=== PATIENT | female | born 1995 | race African-American/Black ===

== ENCOUNTER 2016-09-01 20:43 | Emergency (ER) | payer OTHER, SELFPAY ==
[2016-09-01] MEDS ORDERED: Lidocaine 1% w/Epinephrine 1:100K 20 ML VIAL ONE (22:11)
[2016-09-01] MEDS ORDERED: cefTRIAXone\\ROCEPHIN 1 GM VIAL ONE (22:17)
[2016-09-01] MEDS ORDERED: Lidocaine 1% 20 ML MDV ONE (22:17)
[2016-09-01 22:21] LABS: #Basophils 0.1 thou/uL (0.0-0.2); #Eosinphils 0.1 thou/uL (0.0-0.7); #Lymphocytes 3.1 thou/uL (1.20-3.40); #Monocytes 0.4 thou/uL (0.11-0.59); #Neutrophils 7.3 thou/uL (1.40-6.50); %Eosinophils 1.2 % (0.0-10.0); %Lymphocytes 28.4 % (21.0-51.0); %Monocytes 3.6 % (0.0-10.0); Hematocrit 40.4 % (36.0-47.0); Red Blood Cell (RBC) Count 5.63 mill/uL (4.20-5.40)
[2016-09-01] MEDS ORDERED: Ibuprofen 200 MG TAB ONE (22:26)
[2016-09-01] MEDS ORDERED: HYDROcodone/Acetaminophen 10/325 mg Tablet ONE (22:26)
[2016-09-01 22:28] LABS: Anion Gap 20 mmol/L (10-20); BUN (Urea Nitrogen) 10 mg/dL (7.0-18.7); Calc. Creatinine Clearance 0 mL/min (70-130); Calcium 10.1 mg/dL (7.8-10.44); Carbon Dioxide 21 mmol/L (22-29); Chloride 94 mmol/L (98-107); Estimated GFR-MDRD 67
[2016-09-01] MEDS ORDERED: Insulin Regular 300 UNITS/3 ML VIAL ONE (22:43)
[2016-09-01] MEDS ORDERED: Sulfameth/Trimethoprim DS 800-160mg TAB ONE (22:44)
[2016-09-01 23:06] LABS: Bilirubin Negative (Negative); Blood, Urine Trace (Negative); Glucose, Urine (Dipstick) 500 mg/dL (Negative); Ketone, Urine Negative (Negative); Nitrite Negative (Negative); Protein, Urine (Dipstick) Negative (Neg-Trace); Urobilinogen 0.2 mg/dL (0.2-1.0)
[2016-09-01 23:08] LABS: Bacteria/HPF None Seen HPF (None Seen); WBC/HPF None Seen HPF (0-3)
[2016-09-02] MEDS ORDERED: Sodium Chloride 0.9% 1,000 ML ONE (00:28)
[2016-09-02] MEDS ORDERED: Sodium Chloride 0.9% 3,000 ML ONE (01:12)
[2016-09-02] MEDS ORDERED: HumaLOG 300 UNITS/3 ML VIAL SC SCH (02:15)
[2016-09-02] MEDS ORDERED: Levemir Flexpen 100 UNITS/ML PEN SC SCH (02:15)
--- NOTE | 2016-09-02 03:49 | ERRECORD ---
[facility] EMERGENCY RECORD HPI ABSCESS (WedSep 02, 2016 01:16 AGRE) CHIEF COMPLAINT: Patient presents for evaluation of swelling, Patient presents for evaluation of pain. HISTORIAN: History provided by patient, HAS SWELLING AND PAIN ON HER ABDOMINAL WALL THAT STARTED TODAY. NO FEVER OR CHILLS. NO NAUSEA OR VOMITING OR OTHER SYMPTOMS. IT HURTS TO TOUCH THE AREA. LOCATION: Symptoms are localized, most severe to LOWER ADOMINAL WALL. QUALITY: Pain is dull in nature, described as aching, described as throbbing. SEVERITY: Maximum severity of symptoms severe, Currently symptoms are severe. TIME COURSE: Gradual onset of symptoms, There has been no change in the patient's symptoms over time. ASSOCIATED WITH: No associated chills, No associated drainage, No associated fever, No associated nausea, No associated proximal streaking, No associated warmth, Denies any other complaints. COMPLICATING FACTORS: Complicating factors for wound healing include:, patient with history of diabetes. EXACERBATED BY: Patient's condition exacerbated by TOUCHING, MOVEMENT. RELIEVED BY: Patient's condition relieved by nothing. TETANUS: Tetanus status up to date. ROS (WedSep 02, 2016 01:17 AGRE) CONSTITUTIONAL: Historian denies chills, denies fever, denies lethargy, denies malaise. EYES: Historian denies eye pain, denies eye redness. ENT: Historian denies rhinorrhea, denies sinus pain, denies sore throat. CARDIOVASCULAR: Historian denies chest pain, denies dyspnea on exertion. RESPIRATORY: Historian denies cough, denies shortness of breath. GI: Historian denies abdominal pain, denies nausea, denies vomiting. MUSCULOSKELETAL: Historian denies back pain, denies neck pain. SKIN: Historian reports cellulitis, denies skin changes, denies skin lesions. NEUROLOGIC: Historian denies headache, denies mental status changes. PSYCHIATRIC: Negative psychiatric review of systems, Historian denies anxiety. PAST MEDICAL HISTORY (21:50 MSMI) MEDICAL HISTORY: Flu vaccine up to date, Tetanus immunization up to date, Pneumococcal vaccine not up to date, Past medical history includes history of diabetes, Type II, Past medical history includes gastrointestinal disease, gastroesophageal reflux disease. FEMALE SURGICAL HISTORY: Surgical history of cholecystectomy, Surgical history of section. verified with &a-1R&a+25V*p+0X*d5039L*c202B*c15G*c2P*p-0X&a-25V&a+1R Name: Joyce Villanueva : 1995 F20 MedRec: [id number] AcctNum: [id number] Prepared: WedSep 02, 2016 03:45 by Interface Page 1 of 5 pMD [facility] EMERGENCY RECORD patient on 09/01/16. PSYCHIATRIC HISTORY: No previous psychiatric history. SOCIAL HISTORY: Patient drinks socially, every week, Patient denies drug use, Patient has no smoking history, Lives at home, with family. KNOWN ALLERGIES No Allergy Information Available (Unconfirmed) No Known Allergies CURRENT MEDICATIONS metFORMIN: TABLET : Strength - 1,000 mg : ORAL Patient Dose: 1 tab(s) Oral ONCE. (21:51 MSMI) Lantus: VIAL (ML) : Strength - 100 unit/mL : SUBCUTANEOUS Patient Dose: 30 units Subcutaneous once a day (at bedtime). (21:52 MSMI) NovoLOG Mix 70-30: VIAL (ML) : Strength - 100 unit/mL (70-30) : SUBCUTANEOUS Patient Dose: 30 units Subcutaneous 3 times a day. (WedSep 02, 2016 01:09 MSMI) VITAL SIGNS VITAL SIGNS: BP: 136/72, Pulse: 108, Resp: 16, Temp: 97.7 (Oral), Pain: 8, O2 sat: 978 on Room Air, Time: 09/01/2016 21:45. (21:45 MSMI) BP: 120/74, Pulse: 95, Resp: 16, Temp: 98.0 (Oral), Pain: 6, O2 sat: 98 on Room Air, Time: 09/01/2016 22:35. (22:35 MSMI) BP: 125/81, Pulse: 95, Resp: 16, Temp: 98.1 (Oral), Pain: 4, O2 sat: 100 on Room Air, Time: 09/01/2016 23:26. (23:26 MSMI) BP: 127/72, Pulse: 93, Resp: 16, Temp: 98.6 (Oral), Pain: 0, O2 sat: 100 on Room Air, Time: 09/02/2016 00:51. (WedSep 02, 2016 00:51 MSMI) BP: 124/73, Pulse: 90, Resp: 14, Temp: 98.4 (Oral), Pain: 0, O2 sat: 99 on Room Air, Time: 09/02/2016 02:53. (WedSep 02, 2016 02:53 MSMI) PHYSICAL EXAM (WedSep 02, 2016 01:18 AGRE) CONSTITUTIONAL: Vital signs reviewed, Patient afebrile, Patient appears non toxic, Patient appears pain free, Patient alert and oriented to person, place and time, NURSES NOTES REVIEWED. HEAD: Head exam included findings of head atraumatic, normocephalic. EYES: Eye exam included findings of eyelids normal to inspection, Extraocular muscles intact, Conjunctiva normal, Sclera normal. ENT: Ear exam normal, Nose exam normal, Mouth exam normal. NECK: Neck exam included findings of normal range of motion, no meningeal signs. RESPIRATORY CHEST: Respiratory exam included findings of no respiratory distress, Breath sounds clear, Chest exam included findings of chest movement symmetrical. CARDIOVASCULAR: Cardiovascular assessment normal, Cardiovascular &a-1R&a+25V*p+0X*t8525C*c202B*c15G*c2P*p-0X&a-25V&a+1R Name: Joyce Villanueva : 1995 F20 MedRec: [id number] AcctNum: [id number] Prepared: WedSep 02, 2016 03:45 by Interface Page 2 of 5 pMD [facility] EMERGENCY RECORD exam included findings of heart rate regular rate and rhythm, Heart sounds normal. ABDOMEN FEMALE: Abdominal exam included findings of abdomen nontender, Bowel sounds normal, Liver normal, Spleen normal, no distension, no mass, no pulsatile masses, no peritoneal signs, no rigidity, no guarding, no rebound, LOCALIZED AREA OF CELLULITIS OF 5 X 7 CM WITH ERYTHEMA AND MINIMAL INDURATION OVER LOWER ABDOMINAL WALL WITH A POINTING ABSCESS. BACK: Back exam included findings of normal inspection, range of motion normal. UPPER EXTREMITY: Upper extremity exam included findings of inspection normal, Range of motion normal. LOWER EXTREMITY: Lower extremity exam included findings of inspection normal, Range of motion normal. NEURO: Neuro exam findings include patient oriented to person, place and time, Speech normal, Gait normal, Memory normal, Cranial nerves intact, no focal motor deficits. SKIN: Skin exam included findings of skin warm, dry, and normal in color. PSYCHIATRIC: Psychiatric exam normal, Normal affect. MEDICATION ADMINISTRATION SUMMARY Drug Name: *NovoLOG Mix 70-30, Dose Ordered: 20 units, Route: Subcutaneous, Status: Given, Time: 03:21 09/02/2016, Drug Name: *Lantus, Dose Ordered: 20 units, Route: Subcutaneous, Status: Given, Time: 03:21 09/02/2016, Drug Name: *NovoLIN R, Dose Ordered: 10 units, Route: IV Push, Status: Given, Time: 02:12 09/02/2016, Drug Name: metFORMIN, Dose Ordered: 1000 mg, Route: Oral, Status: Given, Time: 01:15 09/02/2016, Drug Name: *Normal Saline, Dose Ordered: 1 L, Route: IV Fluid Infusion, Status: Given, Time: 01:07 09/02/2016, Drug Name: *NovoLIN R, Dose Ordered: 10 units, Route: IV Push, Status: Given, Time: 01:07 09/02/2016, Drug Name: *Normal Saline, Dose Ordered: 1 L, Route: IV Fluid Infusion, Status: Given, Time: 00:46 09/02/2016, Drug Name: *NovoLIN R, Dose Ordered: 10 units, Route: IV Push, Status: Given, Time: 23:55 09/01/2016, Drug Name: sodium chloride 0.9 % intravenous, Dose Ordered: 2 L, Route: IV Fluid Infusion, Status: Given, Time: 22:58 09/01/2016, Drug Name: NovoLIN R, Dose Ordered: 10 units, Route: IV Push, Status: Given, Time: 22:57 09/01/2016, Drug Name: Bactrim DS, Dose Ordered: 1 tab(s), Route: Oral, Status: Given, Time: 22:55 09/01/2016, Drug Name: HYDROcodone-acetaminophen, Dose Ordered: 10/325 tab(s), Route: Oral, Status: Given, Time: 22:31 09/01/2016, Drug Name: cefTRIAXone injection, Dose Ordered: 1 g, Route: Intramuscular, Status: Given, Time: 22:30 09/01/2016, Drug Name: ibuprofen, Dose Ordered: 600 mg, Route: Oral, Status: &a-1R&a+25V*p+0X*n5783H*c202B*c15G*c2P*p-0X&a-25V&a+1R Name: Joyce Villanueva : 1995 F20 MedRec: [id number] AcctNum: [id number] Prepared: WedSep 02, 2016 03:45 by Interface Page 3 of 5 pMD [facility] EMERGENCY RECORD Given, Time: 22:30 09/01/2016, *Additional information available in notes, Detailed record available in Medication Service section. DOCTOR NOTES (WedSep 02, 2016 01:01 AGRE) TEXT: VS STABLE AND SHE REMAINS ALERT, ORIENTED, AFEBRILE AND PAIN FREE. SAYS SHE DID NOT TAKE HER METFORMIN OR ANY OF HER DOSES OF INSULIN TODAY. DISCUSSED WITH HER OUR GOALS TO GET HER BLOOD SUGAR AROUND 250 BEFORE DISCHARGING HER HOME. ADVISED HER WE WILL GIVE ADDITIONAL INSULIN AND FLUIDS. DISCUSSED WITH HER ANTIBIOTICS FOR THE ABSCESS AND CELLULITIS AND NEED FOR CLOSE FOLLOW UP, PARTICULARLY SINCE SHE IS DIABETIC. SHE EXPRESSED UNDERSTANDING AND AGREEMENT WITH THIS PLAN. SHE HAS MINIMAL ACIDOSIS AND HER BLOOD SUGAR IS DROPPING WITH THE IV INSULIN. SHE DOES NOT APPEAR TOXIC AND I DO NOT FEEL SHE NEEDS ADMISSION TO THE HOSPITAL. SHE AGREES TO CLOSE FOLLOW UP. PATIENT STATUS: Patient has improved since arrival to emergency department. PATIENT PLAN: The patient will be discharged. DATA REVIEWED: Lab data reviewed, Discussed with family. PROBLEM LIST No recorded problems DIAGNOSIS (WedSep 02, 2016 00:51 AGRE) FINAL: PRIMARY: ABSCESS, ADDITIONAL: CELLULITIS, UNCONTROLLED DIABETES WITH HYPERGLYCEMIA. PRESCRIPTION acetaminophen-codeine: TABLET : 300 mg-60 mg : ORAL : Quantity: 1 Unit: tab(s) Route: ORAL Schedule: every 6 hours PRN Dispense: 12 Unit: tab(s) May substitute. Refills: No Refills . (22:24 AGRE) NOTES: prn severe pain No Refills. (22:24 AGRE) Bactrim DS: TABLET : 800 mg-160 mg : ORAL : Quantity: 1 Unit: tab(s) Route: ORAL Schedule: 2 times a day (before meals) Dispense: 20 May substitute. Refills: No Refills . (22:24 AGRE) NOTES: No Refills. (22:24 AGRE) Diflucan: TABLET : 200 mg : ORAL : Quantity: 1 Unit: tab(s) Route: ORAL Schedule: once a week Dispense: 2 May substitute. Refills: No Refills POTENTIAL SEVERE INTERACTION: HYDROcodone-acetaminophen (hydrocodone bitartrate/acetaminophen) Override Rationale: Patient no longer on medication. (WedSep 02, 2016 00:54 AGRE) NOTES: No Refills. (WedSep 02, 2016 00:54 AGRE) DISPOSITION PATIENT: Disposition Type: Discharge, Disposition: *Discharge &a-1R&a+25V*p+0X*s1236D*c202B*c15G*c2P*p-0X&a-25V&a+1R Name: Joyce Villanueva : 1995 F20 MedRec: [id number] AcctNum: [id number] Prepared: WedSep 02, 2016 03:45 by Interface Page 4 of 5 pMD [facility] EMERGENCY RECORD Home, Condition: Improved. (22:23 AGRE) Disposition Type: (none), Disposition: (none). (22:33 AGRE) Disposition Type: Discharge, Disposition: *Discharge Home, Patient left the department. (WedSep 02, 2016 03:34 MSMI) Rodriguez: AGRE=MD Leland, Garret MSMI=MANAV Pritchard, Mariann &a-1R&a+25V*p+0X*k9875S*c202B*c15G*c2P*p-0X&a-25V&a+1R Name: Joyce Villanueva : 1995 F20 MedRec: [id number] AcctNum: [id number] Prepared: WedSep 02, 2016 03:45 by Interface Page 5 of 5 pMD MTDD
--- NOTE | 2016-09-02 03:56 | PICIS ---
[facility] EMERGENCY RECORD TRIAGE (21:43 MSMI) TRIAGE NOTES: Patient complains of suprapubic abdominal pain beginning at 17:30. (21:43 MSMI) PATIENT: NAME: Joyce Villanueva, AGE: 20, GENDER: female, : Denise 1995, TIME OF GREET: WedSep 01, 2016 20:44, PREFERRED LANGUAGE: Vietnamese, ETHNICITY: Not or , ECODE BILLING MAP: [facility] ER, SSN: [id number], Zip Code: [address], KG WEIGHT: 88.90, PHONE: , , , PERSON ID: [id number], PCP: MD CASTRO RUSSELL. (21:43 MSMI) COMPLAINT: ABDOMINAL PAIN. (21:43 MSMI) ADMISSION: URGENCY: 3 Urgent, ADMISSION SOURCE: Home, TRANSPORT: Walk-in, BED: ER -04. (21:43 MSMI) ASSESSMENT: Assessment: Patient complains of suprapubic abdominal pain, history of UTIs., Symptoms began 09/01/2016 17:30. (21:50 MSMI) PAIN: Patient complains of pain described as, burning, on a scale 0-10 patient rates pain as 8. (21:50 MSMI) IMMUNIZATIONS: Flu vaccine up to date, Tetanus immunization up to date, Pneumococcal vaccine not up to date. (21:50 MSMI) TRIAGE SCREENING: Patient denies suicidal ideation, Patient denies presence of domestic violence. (21:50 MSMI) LMP: Last menstrual period: 09/04/2015. (21:50 MSMI) PROVIDERS: TRIAGE NURSE: Mariann Pritchard RN. (21:43 MSMI) VITAL SIGNS: BP 136/72, Pulse 108, Resp 16, Temp 97.7, (Oral), Pain 8, O2 Sat 978, on Room Air, Time 09/01/2016 21:45. (21:45 MSMI) PREVIOUS VISIT ALLERGIES: No Known Allergies. (21:43 MSMI) No Known Allergies. (21:50 MSMI) KNOWN ALLERGIES No Allergy Information Available (Unconfirmed) No Known Allergies CURRENT MEDICATIONS metFORMIN: TABLET : Strength - 1,000 mg : ORAL Patient Dose: 1 tab(s) Oral ONCE. (21:51 MSMI) Lantus: VIAL (ML) : Strength - 100 unit/mL : SUBCUTANEOUS Patient Dose: 30 units Subcutaneous once a day (at bedtime). (21:52 MSMI) NovoLOG Mix 70-30: VIAL (ML) : Strength - 100 unit/mL (70-30) : SUBCUTANEOUS Patient Dose: 30 units Subcutaneous 3 times a day. (WedSep 02, 2016 01:09 MSMI) VITAL SIGNS VITAL SIGNS: BP: 136/72, Pulse: 108, Resp: 16, Temp: 97.7 (Oral), Pain: 8, O2 sat: 978 on Room Air, Time: 09/01/2016 21:45. (21:45 MSMI) BP: 120/74, Pulse: 95, Resp: 16, Temp: 98.0 (Oral), Pain: 6, O2 sat: 98 &a-1R&a+25V*p+0X*o8814J*c202B*c15G*c2P*p-0X&a-25V&a+1R Name: Villanueva Joyce Grey : 1995 F20 MedRec: [id number] AcctNum: [id number] Prepared: WedSep 02, 2016 03:54 by Interface Page 1 of 16 pMD [facility] EMERGENCY RECORD on Room Air, Time: 09/01/2016 22:35. (22:35 MSMI) BP: 125/81, Pulse: 95, Resp: 16, Temp: 98.1 (Oral), Pain: 4, O2 sat: 100 on Room Air, Time: 09/01/2016 23:26. (23:26 MSMI) BP: 127/72, Pulse: 93, Resp: 16, Temp: 98.6 (Oral), Pain: 0, O2 sat: 100 on Room Air, Time: 09/02/2016 00:51. (WedSep 02, 2016 00:51 MSMI) BP: 124/73, Pulse: 90, Resp: 14, Temp: 98.4 (Oral), Pain: 0, O2 sat: 99 on Room Air, Time: 09/02/2016 02:53. (WedSep 02, 2016 02:53 MSMI) NURSING ASSESSMENT: ABDOMEN (22:07 MSMI) CONSTITUTIONAL: Patient arrives ambulatory, Gait steady, History obtained from patient, Patient appears, uncomfortable, Patient cooperative, Patient alert, Oriented to person, place and time, Skin warm, Skin dry, Skin normal in color, Mucous membranes pink, Mucous membranes moist, Patient is well-groomed, Patient complains of Abscess and Abdominal pain, patient complains of suprapubic abdominal pain, upon inspection abscess noted to lower-middle abdomen. Patient reports one episode of vomiting yesterday; reports urinary frequency. Denies nausea and diarrhea. PAIN: burning pain, Lower abdomen, on a scale 0-10 patient rates pain as 8, Pain exacerbated by, palpation, Nothing has been tried to alleviate the pain. ABDOMEN: Abdomen assessment findings include abdomen symmetrical, Abdomen soft, tender, Associated with nausea, Associated with vomiting, history of vomiting, Number of times: 1, vomiting food, no associated diarrhea, no associated constipation, Date of last bowel movement: 08/31/2016, no associated weight change, no associated appetite change, no associated foreign travel. LMP: control use:, injection. GENITOURINARY FEMALE: Associated with urinary complaints, frequency, no associated vaginal discharge, no associated vaginal bleeding, no associated vaginal foreign body, no associated complaints of painful intercourse, no urinary catheter present. SAFETY: Side rails up, Cart/Stretcher in lowest position, Call light within reach, Hospital ID band on, Friend(s) at bedside. NURSING ASSESSMENT: FALL RISK (23:10 MSMI) FALL RISK: Fall risk assessment findings include: no history of falls (0), No bed rest greater than 2 days (0), No use of level of consciousness altering agents with mentation or cognitive changes (0), No change in blood pressure (0), No sensory deficits (0), No impaired mobility (0), No neurologic diagnosis (0), No elimination problems (0), No confusion (0), Total score 0. NURSING ASSESSMENT: SKIN (23:08 MSMI) SKIN: Skin assessment findings include skin warm, Skin dry, Skin normal in color, Inspection findings include no abrasions, Inspection &a-1R&a+25V*p+0X*k2774L*c202B*c15G*c2P*p-0X&a-25V&a+1R Name: Joyce Villanueva : 1995 F20 MedRec: [id number] AcctNum: [id number] Prepared: WedSep 02, 2016 03:54 by Interface Page 2 of 16 pMD [facility] EMERGENCY RECORD findings include no martinez, Inspection findings include no deformity, Inspection findings include: No pressure ulcer to the shoulder, Inspection findings include no pressure ulcer to the elbow, Inspection findings include no pressure ulcers to the hip, Inspection findings include no pressure ulcer to the sacrum, Inspection findings include no pressure ulcer to the heel, Inspection findings include no pressure ulcer, Inspection findings include no pressure ulcer, Inspection findings include no rash, Inspection findings include signs of infection, to abdomen, cellulitis to abscess; abscess drained by Dr. Ha- purulent discharge noted., Inspection findings include no signs of trauma, Inspection findings include no swelling. RENETTA SCALE: (3) Sensory perception slightly limited, (3) Skin is occasionally moist, (4) Patient walks frequently, (4) No mobility limitations, (3) Adequate nutrition, (3) Patient has no apparent problem moving. SAFETY: Side rails up, Cart/Stretcher in lowest position, Family at bedside, Call light within reach, Hospital ID band on. NURSING PROCEDURE: BEDSIDE SIRS TESTING SCORES: Heart Rate 55-109 (0), Temp range 96.8-101.1 (0), respiratory rate 12-24 (0), Latest WBC 3-14.9 (0), Mental Status altered: no (0), Yes, Infection or Suspected Infection. (22:45 MSMI) Heart Rate 55-109 (0), Temp range 96.8-101.1 (0), respiratory rate 12-24 (0), Latest WBC 3-14.9 (0), Mental Status altered: no (0), Yes, Infection or Suspected Infection. (23:10 MSMI) NURSING PROCEDURE: BEDSIDE TESTING PATIENT IDENTIFIER: Patient's identity verified by patient stating name, Patient's identity verified by hospital ID bracelet. (WedSep 02, 2016 00:19 LEEW) Patient actively involved in identification process, Patient's identity verified by patient stating name, Patient's identity verified by patient stating date. (WedSep 02, 2016 00:57 MSMI) Patient actively involved in identification process, Patient's identity verified by patient stating name, Patient's identity verified by patient stating date. (WedSep 02, 2016 02:00 MSMI) Patient actively involved in identification process, Patient's identity verified by patient stating name, Patient's identity verified by patient stating date, Patient's identity verified by hospital ID bracelet. (WedSep 02, 2016 03:06 MSMI) GLUCOSE: Glucose testing indicated for diabetic patient, Glucose testing indicated for hyperglycemia, Venous blood sample, Result (mg/dl) 458, Machine number ER. (WedSep 02, 2016 00:19 LEEW) Glucose testing indicated for diabetic patient, Capillary blood sample, Result (mg/dl) 384. (WedSep 02, 2016 00:57 MSMI) Glucose testing indicated for diabetic patient, Capillary blood sample, Result (mg/dl) 325. (WedSep 02, 2016 02:00 MSMI) Glucose testing indicated for diabetic patient, Capillary blood sample, &a-1R&a+25V*p+0X*n7882G*c202B*c15G*c2P*p-0X&a-25V&a+1R Name: Joyce Villanueva : 1995 F20 MedRec: [id number] AcctNum: [id number] Prepared: WedSep 02, 2016 03:54 by Interface Page 3 of 16 [facility] EMERGENCY RECORD Result (mg/dl) 236. (WedSep 02, 2016 03:06 MSMI) FOLLOW-UP: After procedure, results given to Dr. Leland MD. (WedSep 02, 2016 00:57 MSMI) After procedure, results given to Dr. Leland MD. (WedSep 02, 2016 02:00 MSMI) After procedure, results given to Dr. Leland MD. (WedSep 02, 2016 03:06 MSMI) SAFETY: Side rails up, Cart/Stretcher in lowest position, Call light within reach, Hospital ID band on, Friend(s) at bedside. (WedSep 02, 2016 00:57 MSMI) Side rails up, Cart/Stretcher in lowest position, Call light within reach, Hospital ID band on, Friend(s) at bedside. (WedSep 02, 2016 02:00 MSMI) Side rails up, Cart/Stretcher in lowest position, Call light within reach, Hospital ID band on, Friend(s) at bedside. (WedSep 02, 2016 03:06 MSMI) NURSING PROCEDURE: DISCHARGE NOTE (WedSep 02, 2016 03:25 MSMI) DISCHARGE: Patient discharged to home, ambulating without assistance, friend driving, accompanied by //partner, Discharge instructions given to patient, Prescriptions given and instructions on side effects given, Above person(s) verbalized understanding of discharge instructions and follow-up care, Patient treated and evaluated by physician. BELONGINGS: Belongings and valuables with patient at time of discharge include:, Belongings remain with patient, Valuables remain with patient. SAFETY: Side rails up, Cart/Stretcher in lowest position, Call light within reach, Hospital ID band on, Friend(s) at bedside. NURSING PROCEDURE: IV PATIENT IDENITIFIER: Patient actively involved in identification process, Patient's identity verified by patient stating name, Patient's identity verified by patient stating date. (22:00 MSMI) IV SITE 1: IV therapy indicated for hydration, IV therapy indicated for medication administration, IV established, to the right antecubital, using an 18 gauge catheter, in one attempt, Saline lock established, Labs drawn at time of placement, labeled in the presence of the patient and sent to lab. (22:00 MSMI) IV SITE 2: IV therapy indicated for hydration, IV therapy indicated for medication administration, IV established, to the left antecubital, using an 18 gauge catheter, in one attempt, Saline lock established, Notes: est. by MANAV Galvez. (23:06 MSMI) FOLLOW-UP SITE 1: After procedure, no drainage at IV site, After procedure, no swelling at IV site, After procedure, no redness at IV site, IV discontinued, due to patient being discharged, catheter intact. (22:35 MSMI) FOLLOW-UP SITE 2: After procedure, no drainage at IV site, After procedure, no swelling at IV site, After procedure, no redness at IV &a-1R&a+25V*p+0X*v9662B*c202B*c15G*c2P*p-0X&a-25V&a+1R Name: Joyce Villanueva : 1995 F20 MedRec: [id number] AcctNum: [id number] Prepared: WedSep 02, 2016 03:54 by Interface Page 4 of 16 pMD [facility] EMERGENCY RECORD site, IV discontinued, due to patient being discharged, catheter intact. (WedSep 02, 2016 03:15 MSMI) SAFETY: Side rails up, Cart/Stretcher in lowest position, Call light within reach, Hospital ID band on, Friend(s) at bedside. (22:00 MSMI) NURSING PROCEDURE: URINE COLLECTION (21:47 MSMI) PATIENT IDENTIFIER: Patient actively involved in identification process, Patient's identity verified by patient stating name, Patient's identity verified by patient stating date. URINE COLLECTION FEMALE: Urine collection indicated for faciliate diagnosis, Urine collected by mid-stream clean catch, urine yellow in color, and cloudy, no sediment noted, Specimen labeled in the presence of the patient and sent to lab, Specimen obtained for culture labeled in the presence of the patient and sent to lab. SAFETY: Side rails up, Cart/Stretcher in lowest position, Call light within reach, Hospital ID band on, Friend(s) at bedside. ORDER DETAILS Order Name: Basic Metabolic Panel, Status: Active, Time: 21:52 09/01/2016, User: NUSRAT, - Ordered for: MD Ha Andrea, - Entered by: MANAV Pritchard Megan - Tue Sep 01, 2016 21:52, - Quantity: 1, Order Name: Beta-Hydroxybutyrate (Ketone), Status: Active, Time: 22:42 09/01/2016, User: TANIA, - Ordered for: MD Ha Andrea, - Entered by: MD Ha Andrea - arun Sep 01, 2016 22:42, - Quantity: 1, Order Name: BLOOD GLUCOSE MONITOR, Status: Done, Time: 00:55 09/02/2016, User: NUSRAT, - Ordered for: MD Ha Andrea, - Entered by: MANAV Pritchard Megan - WedSep 02, 2016 00:53, - Quantity: 1, Order Name: CBC with Differential, Status: Active, Time: 21:52 09/01/2016, User: NUSRAT, - Ordered for: MD Ha Andrea, - Entered by: MANAV Pritchard Megan - Tue Sep 01, 2016 21:52, - Quantity: 1, Order Name: Test, Urine (BHCG), Status: Active, Time: 21:44 09/01/2016, User: NUSRAT, - Ordered for: Ersmdo, ., - Entered by: MANAV Pritchard Megan - Tue Sep 01, 2016 21:44, - Quantity: 1, Order Name: Test, Urine (BHCG), Status: Active, Time: 22:43 09/01/2016, User: TANIA, - Ordered for: MD Ha Andrea, - Entered by: MD Ha Andrea - Tue Sep 01, 2016 22:43, - Quantity: 1, &a-1R&a+25V*p+0X*[id number]*c202B*c15G*c2P*p-0X&a-25V&a+1R Name: Rich Joyce Grey : 1995 F20 MedRec: [id number] AcctNum: [id number] Prepared: WedSep 02, 2016 03:54 by Interface Page 5 of 16 [facility] EMERGENCY RECORD Order Name: SALINE LOCK, Status: Done, Time: 22:04 09/01/2016, User: NUSRAT, - Ordered for: Ersmdo, ., - Entered by: MANAV Pritchard, Mariann Jack Sep 01, 2016 21:45, - Quantity: 1, Order Name: Urinalysis w/ Rflx Microscopic, Status: Active, Time: 21:44 09/01/2016, User: NUSRAT, - Ordered for: Ersmdo, ., - Entered by: MANAV Pritchard, Mariann Jack Sep 01, 2016 21:44, - Quantity: 1, Order Name: Urinalysis w/ Rflx Microscopic, Status: Active, Time: 22:43 09/01/2016, User: TANIA, - Ordered for: MD Ha Andrea, - Entered by: MD Ha Andrea - Tue Sep 01, 2016 22:43, - Quantity: 1. MEDICATION ADMINISTRATION SUMMARY Drug Name: *NovoLOG Mix 70-30, Dose Ordered: 20 units, Route: Subcutaneous, Status: Given, Time: 03:21 09/02/2016, Drug Name: *Lantus, Dose Ordered: 20 units, Route: Subcutaneous, Status: Given, Time: 03:21 09/02/2016, Drug Name: *NovoLIN R, Dose Ordered: 10 units, Route: IV Push, Status: Given, Time: 02:12 09/02/2016, Drug Name: metFORMIN, Dose Ordered: 1000 mg, Route: Oral, Status: Given, Time: 01:15 09/02/2016, Drug Name: *Normal Saline, Dose Ordered: 1 L, Route: IV Fluid Infusion, Status: Given, Time: 01:07 09/02/2016, Drug Name: *NovoLIN R, Dose Ordered: 10 units, Route: IV Push, Status: Given, Time: 01:07 09/02/2016, Drug Name: *Normal Saline, Dose Ordered: 1 L, Route: IV Fluid Infusion, Status: Given, Time: 00:46 09/02/2016, Drug Name: *NovoLIN R, Dose Ordered: 10 units, Route: IV Push, Status: Given, Time: 23:55 09/01/2016, Drug Name: sodium chloride 0.9 % intravenous, Dose Ordered: 2 L, Route: IV Fluid Infusion, Status: Given, Time: 22:58 09/01/2016, Drug Name: NovoLIN R, Dose Ordered: 10 units, Route: IV Push, Status: Given, Time: 22:57 09/01/2016, Drug Name: Bactrim DS, Dose Ordered: 1 tab(s), Route: Oral, Status: Given, Time: 22:55 09/01/2016, Drug Name: HYDROcodone-acetaminophen, Dose Ordered: 10/325 tab(s), Route: Oral, Status: Given, Time: 22:31 09/01/2016, Drug Name: cefTRIAXone injection, Dose Ordered: 1 g, Route: Intramuscular, Status: Given, Time: 22:30 09/01/2016, Drug Name: ibuprofen, Dose Ordered: 600 mg, Route: Oral, Status: Given, Time: 22:30 09/01/2016, *Additional information available in notes, Detailed record available in Medication Service section. MEDICATION SERVICE Bactrim DS: Order: Bactrim DS (sulfamethoxazole/trimethoprim) - &a-1R&a+25V*p+0X*j5200T*c202B*c15G*c2P*p-0X&a-25V&a+1R Name: Joyce Villanueva : 1995 F20 MedRec: [id number] AcctNum: [id number] Prepared: WedSep 02, 2016 03:54 by Interface Page 6 of 16 pMD [facility] EMERGENCY RECORD Dose: 1 tab(s) : Oral Ordered by: Garret Ha MD Entered by: Garret Ha MD WedSep 01, 2016 22:28 , Acknowledged by: Mariann Pritchard RN WedSep 01, 2016 22:38 Documented as given by: Leonor Varner RN Sep 01, 2016 22:55 Patient, Medication, Dose, Route and Time verified prior to administration. Amount given: 1TAB, Site: Medication administered P.O., Patient appears Awake and alert- acceptable, Correct patient, time, route, dose and medication confirmed prior to administration, Patient advised of actions and side-effects prior to administration, Allergies confirmed and medications reviewed prior to administration. cefTRIAXone injection: Order: cefTRIAXone injection (ceftriaxone sodium) - Dose: 1 g : Intramuscular Ordered by: Garret Ha MD Entered by: Garret Ha MD WedSep 01, 2016 22:12 , Acknowledged by: Mariann Pritchard RN WedSep 01, 2016 22:16 Documented as given by: Mariann Pritchard RN WedSep 01, 2016 22:30 Patient, Medication, Dose, Route and Time verified prior to administration. IM antibiotic, Amount given: 1 gram, Medication administered to right thigh, Medication combined for administration with lido 1% 2.1 mL, Patient appears Awake and alert- acceptable, Correct patient, time, route, dose and medication confirmed prior to administration, Patient advised of actions and side-effects prior to administration, Allergies confirmed and medications reviewed prior to administration, Patient tolerated procedure well, Patient in position of comfort, Side rails up, Cart in lowest position, Call light in reach. : Follow Up : Response assessment performed, No signs or symptoms of allergic reaction noted, Site inspection shows, No swelling at administration site, No drainage at administration site, No bleeding at site, No bruising noted at site, Advised not to ambulate without assistance, Patient in position of comfort, Side rails up, Cart in lowest position, Friend at bedside, Call light in reach, Attending physician aware. (WedSep 02, 2016 00:40 MSMI) HYDROcodone-acetaminophen: Order: HYDROcodone-acetaminophen (hydrocodone bitartrate/acetaminophen) - Dose: 10/325 tab(s) : Oral Ordered by: Garret Ha MD Entered by: Garret Ha MD WedSep 01, 2016 22:22 , Acknowledged by: Mariann Pritchard RN WedSep 01, 2016 22:26 Documented as given by: Mariann Pritchard RN WedSep 01, 2016 22:31 Patient, Medication, Dose, Route and Time verified prior to administration. Amount given: 10/325mg, Site: Medication administered P.O., Mouth check performed after administration of medication, Patient appears Awake and alert- acceptable, Correct patient, time, route, dose and medication confirmed prior to administration, Patient advised of actions and side-effects prior to administration, Allergies confirmed and medications reviewed prior to administration, Patient tolerated &a-1R&a+25V*p+0X*h2417S*c202B*c15G*c2P*p-0X&a-25V&a+1R Name: Joyce Villanueva Que : 1995 F20 MedRec: [id number] AcctNum: [id number] Prepared: WedSep 02, 2016 03:54 by Interface Page 7 of 16 pMD [facility] EMERGENCY RECORD procedure well, Patient in position of comfort, Side rails up, Cart in lowest position, Friend at bedside, Call light in reach. ibuprofen: Order: ibuprofen - Dose: 600 mg : Oral Ordered by: Garret Ha MD Entered by: Garret Ha MD WedSep 01, 2016 22:22 , Acknowledged by: Mariann Pritchard RN WedSep 01, 2016 22:26 Documented as given by: Mariann Pritchard RN WedSep 01, 2016 22:30 Patient, Medication, Dose, Route and Time verified prior to administration. Amount given: 600 mg, Site: Medication administered P.O., Mouth check performed after administration of medication, Patient appears Awake and alert- acceptable, Correct patient, time, route, dose and medication confirmed prior to administration, Patient advised of actions and side-effects prior to administration, Allergies confirmed and medications reviewed prior to administration, Patient tolerated procedure well, Patient in position of comfort, Side rails up, Cart in lowest position, Friend at bedside, Call light in reach. Lantus: Order: Lantus (insulin glargine,hum.rec.anlog) - Dose: 20 units : Subcutaneous Notes: GIVE JUST BEFORE DISCHARGE Ordered by: Garret Ha MD Entered by: Garret Ha MD WedSep 02, 2016 01:14 , Acknowledged by: Mariann Pritchard RN WedSep 02, 2016 01:18 Documented as given by: Mariann Pritchard RN WedSep 02, 2016 03:21 Patient, Medication, Dose, Route and Time verified prior to administration. Amount given: 20 units, Medication administered to right upper arm, Correct patient, time, route, dose and medication confirmed prior to administration, Patient advised of actions and side-effects prior to administration, Allergies confirmed and medications reviewed prior to administration, Patient tolerated procedure well, Advised not to ambulate without assistance, Patient in position of comfort, Side rails up, Cart in lowest position, Friend at bedside, Call light in reach. metFORMIN: Order: metFORMIN (metformin HCl) - Dose: 1000 mg : Oral Ordered by: Garret Ha MD Entered by: Garret Ha MD WedSep 02, 2016 01:09 , Acknowledged by: Mariann Pritchard RN WedSep 02, 2016 01:10 Documented as given by: Mariann Pritchard RN WedSep 02, 2016 01:15 Patient, Medication, Dose, Route and Time verified prior to administration. Amount given: 1000mg, Site: Medication administered P.O., Patient appears Awake and alert- acceptable, Correct patient, time, route, dose and medication confirmed prior to administration, Patient advised of actions and side-effects prior to administration, Allergies confirmed and medications reviewed prior to administration, Patient tolerated procedure well, Patient in position of comfort, Side rails up, Cart in lowest position, Friend at bedside, Call light in reach. &a-1R&a+25V*p+0X*j8192S*c202B*c15G*c2P*p-0X&a-25V&a+1R Name: Joyce Villanueva Que : 1995 F20 MedRec: [id number] AcctNum: [id number] Prepared: WedSep 02, 2016 03:54 by Interface Page 8 of 16 pMD [facility] EMERGENCY RECORD Normal Saline: Order: Normal Saline (0.9 % sodium chloride) - Dose: 1 L : IV Fluid Infusion Schedule: Bolus Notes: Read back and verified, Verbal Order Ordered by: Garret Ha MD Entered by: Mariann Pritchard RN WedSep 02, 2016 00:42 , Acknowledged by: Mariann Pritchadr RN WedSep 02, 2016 00:42 Documented as given by: Mariann Pritchard RN WedSep 02, 2016 00:46 Patient, Medication, Dose, Route and Time verified prior to administration. Verbal order read back and verified, Amount given: 1 liter, IV SITE #1 IV fluids established for hydration, IV SITE #1 into left antecubital, IV SITE #1 3rd bag hung, amount 1 Liter hung, IV SITE #1 bolus of 1000 ml established, via primary tubing, Awake and alert- acceptable, Ordering Physician approved to Give, Catheter placement confirmed via flush prior to administration, IV site without signs or symptoms of infiltration during medication administration, No swelling during administration, No drainage during administration, IV flushed after administration, Correct patient, time, route, dose and medication confirmed prior to administration, Patient advised of actions and side-effects prior to administration, Allergies confirmed and medications reviewed prior to administration, Patient tolerated procedure well, Patient in position of comfort, Side rails up, Cart in lowest position, Friend at bedside, Call light in reach. : Follow Up : Response assessment performed, No signs or symptoms of allergic reaction noted, _IV SITE #1:_, IV fluid infusion discontinued, on WedSep 02, 2016 00:56, 10 minutes, ., Total amount infused: 1 Liter, Advised not to ambulate without assistance, Patient in position of comfort, Side rails up, Cart in lowest position, Call light in reach, Attending physician aware. (WedSep 02, 2016 00:56 MSMI) Normal Saline: Order: Normal Saline (0.9 % sodium chloride) - Dose: 1 L : IV Fluid Infusion Schedule: Now Notes: 500mL/Hour Read back and verified, Verbal Order Ordered by: Garret Ha MD Entered by: Mariann Pritchard RN WedSep 02, 2016 00:58 , Acknowledged by: Mariann Pritchard RN WedSep 02, 2016 01:03 Documented as given by: Mariann Pritchard RN WedSep 02, 2016 01:07 Patient, Medication, Dose, Route and Time verified prior to administration. Amount given: 1 liter, IV SITE #1 IV fluids established for hydration, IV SITE #1 into left antecubital, IV SITE #1 4th bag hung, IV SITE #1 After bolus completed rate changed to 500 ml/hr, via primary tubing, IV SITE #1 on IV pump, Awake and alert- acceptable, Ordering Physician approved to Give, Catheter placement confirmed via flush prior to administration, IV site without signs or symptoms of infiltration during medication administration, No swelling during administration, No drainage during administration, IV flushed after &a-1R&a+25V*p+0X*x1845C*c202B*c15G*c2P*p-0X&a-25V&a+1R Name: Joyce Villanueva : 1995 F20 MedRec: [id number] AcctNum: [id number] Prepared: WedSep 02, 2016 03:54 by Interface Page 9 of 16 pMD [facility] EMERGENCY RECORD administration, Correct patient, time, route, dose and medication confirmed prior to administration, Patient advised of actions and side-effects prior to administration, Allergies confirmed and medications reviewed prior to administration, Patient tolerated procedure well, Patient in position of comfort, Side rails up, Cart in lowest position, Friend at bedside, Call light in reach. : Follow Up : Response assessment performed, No signs or symptoms of allergic reaction noted, Site inspection shows, No swelling at administration site, No drainage at administration site, No bleeding at site, No bruising noted at site, _IV SITE #1:_, IV fluid infusion discontinued, on WedSep 02, 2016 03:15, Total fluid hydration time IV site 1 2 hours, 10 minutes, ., Total amount infused: 1 liter, IV Line flushed after administration, Advised not to ambulate without assistance, Patient in position of comfort, Side rails up, Cart in lowest position, Call light in reach, Attending physician aware. (WedSep 02, 2016 03:15 MSMI) NovoLIN R: Order: NovoLIN R (insulin regular, human) - Dose: 10 units : IV Push Ordered by: Garret Ha MD Entered by: Garret Ha MD [facility] Sep 01, 2016 22:42 Documented as given by: Leonor Varner RN WedSep 01, 2016 22:57 Patient, Medication, Dose, Route and Time verified prior to administration. Amount given: 10UNITS, IV SITE #1 IVP, initial medication, Slowly, Awake and alert- acceptable, Catheter placement confirmed via flush prior to administration, IV site without signs or symptoms of infiltration during medication administration, No swelling during administration, No drainage during administration, IV flushed after administration, Correct patient, time, route, dose and medication confirmed prior to administration, Patient advised of actions and side-effects prior to administration, Allergies confirmed and medications reviewed prior to administration, Co-signed by: Leonor Varner RN Sep 01, 2016 23:50, Co-signed by: Mariann Pritchard RN WedSep 01, 2016 23:51. NovoLIN R: Order: NovoLIN R (insulin regular, human) - Dose: 10 units : IV Push Schedule: Now Notes: Read back and verified, Verbal Order Ordered by: Garret Ha MD Entered by: Mariann Pritchard RN WedSep 01, 2016 23:52 , Co-signed by: Leonor Varner RN WedSep 01, 2016 23:54, Acknowledged by: Quoc Abbasi RN Sep 01, 2016 23:54 Documented as given by: Quoc Abbasi RN Sep 01, 2016 23:55 Patient, Medication, Dose, Route and Time verified prior to administration. Amount given: 10 units, IV SITE #1 IVP, subsequent different medication, Slowly, Awake and alert- acceptable, Catheter placement confirmed via flush prior to administration, IV site without signs or symptoms of infiltration during medication administration, No swelling during administration, No drainage during administration, IV &a-1R&a+25V*p+0X*h9864X*c202B*c15G*c2P*p-0X&a-25V&a+1R Name: Joyce Villanueva : 1995 F20 MedRec: [id number] AcctNum: [id number] Prepared: WedSep 02, 2016 03:54 by Interface Page 10 of 16 pMD [facility] EMERGENCY RECORD flushed after administration, Correct patient, time, route, dose and medication confirmed prior to administration, Patient advised of actions and side-effects prior to administration, Allergies confirmed and medications reviewed prior to administration, Administered by Quoc Abbasi RN, Patient in position of comfort, Side rails up, Cart in lowest position, Family at bedside. NovoLIN R: Order: NovoLIN R (insulin regular, human) - Dose: 10 units : IV Push Schedule: Now Notes: Read back and verified, Verbal Order Read back and verified, Verbal Order Ordered by: Garret Ha MD Entered by: Mariann Pritchard RN WedSep 02, 2016 00:57 , Acknowledged by: Mariann Pritchard RN WedSep 02, 2016 01:03 Documented as given by: Mariann Pritchard RN WedSep 02, 2016 01:07 Patient, Medication, Dose, Route and Time verified prior to administration. Amount given: 10 units, IV SITE #1 IVP, repeat same medication, Slowly, Awake and alert- acceptable, Ordering Physician approved to Give, Catheter placement confirmed via flush prior to administration, IV site without signs or symptoms of infiltration during medication administration, No swelling during administration, No drainage during administration, IV flushed after administration, Correct patient, time, route, dose and medication confirmed prior to administration, Patient advised of actions and side-effects prior to administration, Allergies confirmed and medications reviewed prior to administration, Patient tolerated procedure well, Patient in position of comfort, Side rails up, Cart in lowest position, Friend at bedside, Call light in reach, Co-signed by: Leonor Varner RN WedSep 02, 2016 02:07. NovoLIN R: Order: NovoLIN R (insulin regular, human) - Dose: 10 units : IV Push Schedule: Now Notes: Read back and verified, Verbal Order Read back and verified, Telephone Order, Verbal Order Ordered by: Garret Ha MD Entered by: Mariann Pritchard RN WedSep 02, 2016 02:07 , Acknowledged by: Mariann Pritchard RN WedSep 02, 2016 02:07 Documented as given by: Mariann Pritchard RN WedSep 02, 2016 02:12 Patient, Medication, Dose, Route and Time verified prior to administration. Amount given: 10 units, IV SITE #1 IVP, repeat same medication, Slowly, Awake and alert- acceptable, Ordering Physician approved to Give, Catheter placement confirmed via flush prior to administration, IV site without signs or symptoms of infiltration during medication administration, No swelling during administration, No drainage during administration, IV flushed after administration, Correct patient, time, route, dose and medication confirmed prior to administration, Patient advised of actions and side-effects prior to administration, Allergies confirmed and medications reviewed prior to administration, &a-1R&a+25V*p+0X*k1238Q*c202B*c15G*c2P*p-0X&a-25V&a+1R Name: Joyce Villanueva : 1995 F20 MedRec: [id number] AcctNum: [id number] Prepared: WedSep 02, 2016 03:54 by Interface Page 11 of 16 pMD [facility] EMERGENCY RECORD Patient tolerated procedure well, Patient in position of comfort, Side rails up, Cart in lowest position, Friend at bedside, Call light in reach. NovoLOG Mix 70-30: Order: NovoLOG Mix 70-30 (insulin aspart protamine human/insulin aspart) - Dose: 20 units : Subcutaneous Notes: GIVE JUST BEFORE DISCHARGE Ordered by: Graret Ha MD Entered by: Garret Ha MD WedSep 02, 2016 01:13 , Acknowledged by: Mariann Pritchard RN WedSep 02, 2016 01:18 Documented as given by: Mariann Pritchard RN WedSep 02, 2016 03:21 Patient, Medication, Dose, Route and Time verified prior to administration. Amount given: 20units, Medication administered to left upper arm, Correct patient, time, route, dose and medication confirmed prior to administration, Patient advised of actions and side-effects prior to administration, Allergies confirmed and medications reviewed prior to administration, Patient tolerated procedure well, Administered by MANAV Galvez, Advised not to ambulate without assistance, Patient in position of comfort, Side rails up, Cart in lowest position, Call light in reach, medication verified with pharmacist prior to administration. sodium chloride 0.9 % intravenous: Order: sodium chloride 0.9 % intravenous (0.9 % sodium chloride) - Dose: 2 L : IV Fluid Infusion Ordered by: Garret Ha MD Entered by: Garret Ha MD WedSep 01, 2016 22:42 Documented as given by: Leonor Varner RN WedSep 01, 2016 22:58 Patient, Medication, Dose, Route and Time verified prior to administration. IV SITE #1 into left antecubital, IV SITE #2, IV fluids established for hydration, into left antecubital, 1st bag hung, amount 1 Liter hung, IV bolus of 1000 ml established, via primary tubing, via pump tubing, Awake and alert- acceptable, Catheter placement confirmed via flush prior to administration, IV site without signs or symptoms of infiltration during medication administration, No swelling during administration, No drainage during administration, IV flushed after administration, Correct patient, time, route, dose and medication confirmed prior to administration, Patient advised of actions and side-effects prior to administration, Allergies confirmed and medications reviewed prior to administration. : Follow Up : Response assessment performed, No signs or symptoms of allergic reaction noted, Site inspection shows, No swelling at administration site, No drainage at administration site, No bleeding at site, No bruising noted at site, _IV SITE #2:_, IV fluid infusion discontinued, on WedSep 02, 2016 00:41, Total fluid hydration time IV site 2 1 hour, 45 minutes, ., Total amount infused: 2 liters, IV Line flushed after administration, Advised not to ambulate without assistance, Patient in position of comfort, Side rails up, Cart in lowest position, Call light in reach, Attending &a-1R&a+25V*p+0X*i3831R*c202B*c15G*c2P*p-0X&a-25V&a+1R Name: Joyce Villanueva Que : 1995 F20 MedRec: [id number] AcctNum: [id number] Prepared: WedSep 02, 2016 03:54 by Interface Page 12 of 16 pMD [facility] EMERGENCY RECORD physician aware. (WedSep 02, 2016 00:41 MSMI) HPI ABSCESS (WedSep 02, 2016 01:16 AGRE) CHIEF COMPLAINT: Patient presents for evaluation of swelling, Patient presents for evaluation of pain. HISTORIAN: History provided by patient, HAS SWELLING AND PAIN ON HER ABDOMINAL WALL THAT STARTED TODAY. NO FEVER OR CHILLS. NO NAUSEA OR VOMITING OR OTHER SYMPTOMS. IT HURTS TO TOUCH THE AREA. LOCATION: Symptoms are localized, most severe to LOWER ADOMINAL WALL. QUALITY: Pain is dull in nature, described as aching, described as throbbing. SEVERITY: Maximum severity of symptoms severe, Currently symptoms are severe. TIME COURSE: Gradual onset of symptoms, There has been no change in the patient's symptoms over time. ASSOCIATED WITH: No associated chills, No associated drainage, No associated fever, No associated nausea, No associated proximal streaking, No associated warmth, Denies any other complaints. COMPLICATING FACTORS: Complicating factors for wound healing include:, patient with history of diabetes. EXACERBATED BY: Patient's condition exacerbated by TOUCHING, MOVEMENT. RELIEVED BY: Patient's condition relieved by nothing. TETANUS: Tetanus status up to date. ROS (WedSep 02, 2016 01:17 AGRE) CONSTITUTIONAL: Historian denies chills, denies fever, denies lethargy, denies malaise. EYES: Historian denies eye pain, denies eye redness. ENT: Historian denies rhinorrhea, denies sinus pain, denies sore throat. CARDIOVASCULAR: Historian denies chest pain, denies dyspnea on exertion. RESPIRATORY: Historian denies cough, denies shortness of breath. GI: Historian denies abdominal pain, denies nausea, denies vomiting. MUSCULOSKELETAL: Historian denies back pain, denies neck pain. SKIN: Historian reports cellulitis, denies skin changes, denies skin lesions. NEUROLOGIC: Historian denies headache, denies mental status changes. PSYCHIATRIC: Negative psychiatric review of systems, Historian denies anxiety. PAST MEDICAL HISTORY (21:50 MSMI) MEDICAL HISTORY: Flu vaccine up to date, Tetanus immunization up to date, Pneumococcal vaccine not up to date, Past medical history includes history of diabetes, Type II, Past medical history includes gastrointestinal disease, gastroesophageal reflux disease. &a-1R&a+25V*p+0X*z7666A*c202B*c15G*c2P*p-0X&a-25V&a+1R Name: Villanueva Joyce Grey : 1995 F20 MedRec: [id number] AcctNum: [id number] Prepared: WedSep 02, 2016 03:54 by Interface Page 13 of 16 pMD [facility] EMERGENCY RECORD FEMALE SURGICAL HISTORY: Surgical history of cholecystectomy, Surgical history of section. verified with patient on 09/01/16. PSYCHIATRIC HISTORY: No previous psychiatric history. SOCIAL HISTORY: Patient drinks socially, every week, Patient denies drug use, Patient has no smoking history, Lives at home, with family. PHYSICAL EXAM (WedSep 02, 2016 01:18 AGRE) CONSTITUTIONAL: Vital signs reviewed, Patient afebrile, Patient appears non toxic, Patient appears pain free, Patient alert and oriented to person, place and time, NURSES NOTES REVIEWED. HEAD: Head exam included findings of head atraumatic, normocephalic. EYES: Eye exam included findings of eyelids normal to inspection, Extraocular muscles intact, Conjunctiva normal, Sclera normal. ENT: Ear exam normal, Nose exam normal, Mouth exam normal. NECK: Neck exam included findings of normal range of motion, no meningeal signs. RESPIRATORY CHEST: Respiratory exam included findings of no respiratory distress, Breath sounds clear, Chest exam included findings of chest movement symmetrical. CARDIOVASCULAR: Cardiovascular assessment normal, Cardiovascular exam included findings of heart rate regular rate and rhythm, Heart sounds normal. ABDOMEN FEMALE: Abdominal exam included findings of abdomen nontender, Bowel sounds normal, Liver normal, Spleen normal, no distension, no mass, no pulsatile masses, no peritoneal signs, no rigidity, no guarding, no rebound, LOCALIZED AREA OF CELLULITIS OF 5 X 7 CM WITH ERYTHEMA AND MINIMAL INDURATION OVER LOWER ABDOMINAL WALL WITH A POINTING ABSCESS. BACK: Back exam included findings of normal inspection, range of motion normal. UPPER EXTREMITY: Upper extremity exam included findings of inspection normal, Range of motion normal. LOWER EXTREMITY: Lower extremity exam included findings of inspection normal, Range of motion normal. NEURO: Neuro exam findings include patient oriented to person, place and time, Speech normal, Gait normal, Memory normal, Cranial nerves intact, no focal motor deficits. SKIN: Skin exam included findings of skin warm, dry, and normal in color. PSYCHIATRIC: Psychiatric exam normal, Normal affect. LAB INTERPRETATION (WedSep 02, 2016 01:22 [facility]) INTERPRETATION: CBC abnormal, White blood cell count elevated, Chemistry abnormal, Sodium decreased, Glucose elevated, Bicarbonate decreased, Liver functions normal, Urinalysis abnormal, ketones negative. &a-1R&a+25V*p+0X*x0932Q*c202B*c15G*c2P*p-0X&a-25V&a+1R Name: Joyce Villanueva : 1995 F20 MedRec: [id number] AcctNum: [id number] Prepared: WedSep 02, 2016 03:54 by Interface Page 14 of 16 pMD [facility] EMERGENCY RECORD EVENTS TRANSFER: Triage to Emergency Emergency Room -04. (WedSep 01, 2016 21:43 MSMI) Removed from Emergency Emergency Room -04. (WedSep 02, 2016 03:34 MSMI) O2SAT INTERPRETATION (WedSep 02, 2016 01:22 AGRE) O2SAT: Continuous pulse oximetry, Oxygen saturation 100%, on room air, Oxygen saturation interpretation: Normal, No intervention required. DOCTOR NOTES (WedSep 02, 2016 01:01 AGRE) TEXT: VS STABLE AND SHE REMAINS ALERT, ORIENTED, AFEBRILE AND PAIN FREE. SAYS SHE DID NOT TAKE HER METFORMIN OR ANY OF HER DOSES OF INSULIN TODAY. DISCUSSED WITH HER OUR GOALS TO GET HER BLOOD SUGAR AROUND 250 BEFORE DISCHARGING HER HOME. ADVISED HER WE WILL GIVE ADDITIONAL INSULIN AND FLUIDS. DISCUSSED WITH HER ANTIBIOTICS FOR THE ABSCESS AND CELLULITIS AND NEED FOR CLOSE FOLLOW UP, PARTICULARLY SINCE SHE IS DIABETIC. SHE EXPRESSED UNDERSTANDING AND AGREEMENT WITH THIS PLAN. SHE HAS MINIMAL ACIDOSIS AND HER BLOOD SUGAR IS DROPPING WITH THE IV INSULIN. SHE DOES NOT APPEAR TOXIC AND I DO NOT FEEL SHE NEEDS ADMISSION TO THE HOSPITAL. SHE AGREES TO CLOSE FOLLOW UP. PATIENT STATUS: Patient has improved since arrival to emergency department. PATIENT PLAN: The patient will be discharged. DATA REVIEWED: Lab data reviewed, Discussed with family. INCISION AND DRAINAGE (WedSep 02, 2016 01:23 AGRE) INCISION AND DRAINAGE: Side and/or site verified, Patient identification confirmed, Sterile procedures observed, Verbal consent obtained, Incision and drainage indicated for cutaneous abscess, 1% Lidocaine with epinephrine used, 1 mL, Incision and drainage of skin abscess, Location: ABDOMINAL WALL, simple, Drained blood, After procedure, wound dressed, Tetanus status up to date, Patient tolerated the procedure well, DISCUSSED WITH PATIENT INCISION AND DRAINAGE WITH PACKING BUT SHE REFUSED. SHE WOULD ALLOW THE POINTING PUSTLE TO BE OPENED ONLY AND NO PACKING. THE AREA WAS CLEANED WITH BETADINE, ANESTHESIZED, OPENES WITH AN 18 GUAGE NEEDLE TO DECAP THE AREA AND REMOVE THE SKIN LEAVING A SMALL HOLE FOR DRAINAGE. THERE WAS ABOUT 5 ML OF YELLOW PUS THAT FLOWED FROM THE ABSCESS WITHOUT ANY MANIPULATION. AFTER THE PUS FINISHED DRAINING SHE ALLOWED A SMALL AMOUNT OF PUSHING ON THE ABSCESS BUT ONLY BLOOD DRAINED AT THAT POINT. PROBLEM LIST No recorded problems DIAGNOSIS (WedSep 02, 2016 00:51 AGRE) FINAL: PRIMARY: ABSCESS, ADDITIONAL: CELLULITIS, &a-1R&a+25V*p+0X*z5256L*c202B*c15G*c2P*p-0X&a-25V&a+1R Name: Joyce Villanueva : 1995 F20 MedRec: [id number] AcctNum: [id number] Prepared: WedSep 02, 2016 03:54 by Interface Page 15 of 16 pMD [facility] EMERGENCY RECORD UNCONTROLLED DIABETES WITH HYPERGLYCEMIA. DISPOSITION PATIENT: Disposition Type: Discharge, Disposition: *Discharge Home, Condition: Improved. (22:23 AGRE) Disposition Type: (none), Disposition: (none). (22:33 AGRE) Disposition Type: Discharge, Disposition: *Discharge Home, Patient left the department. (WedSep 02, 2016 03:34 MSMI) INSTRUCTION (WedSep 02, 2016 00:54 AGRE) DISCHARGE: ABSCESS, I AND D, CELLULITIS, DIABETIC HYPERGLYCEMIA. FOLLOWUP: MD MATTHEW, [place], [address] [address], [phone]. SPECIAL: START YOUR ANTIBIOTICS TOMORROW MORNING. TAKE MOTRIN 600 MG EVERY 6 HOURS FOR INFLAMMATION AND PAIN IN ADDITION TO THE PRESCRIPTION MEDICATIONS. FOLLOW UP WITH YOUR PHYSICIAN FOR RECHECK IN 24 HOURS. SEE A PHYSICIAN SOONER IF WORSENING OR IF NEW SYMPTOMS DEVELOP. PRESCRIPTION acetaminophen-codeine: TABLET : 300 mg-60 mg : ORAL : Quantity: 1 Unit: tab(s) Route: ORAL Schedule: every 6 hours PRN Dispense: 12 Unit: tab(s) May substitute. Refills: No Refills . (22:24 AGRE) NOTES: prn severe pain No Refills. (22:24 AGRE) Bactrim DS: TABLET : 800 mg-160 mg : ORAL : Quantity: 1 Unit: tab(s) Route: ORAL Schedule: 2 times a day (before meals) Dispense: 20 May substitute. Refills: No Refills . (22:24 AGRE) NOTES: No Refills. (22:24 AGRE) Diflucan: TABLET : 200 mg : ORAL : Quantity: 1 Unit: tab(s) Route: ORAL Schedule: once a week Dispense: 2 May substitute. Refills: No Refills POTENTIAL SEVERE INTERACTION: HYDROcodone-acetaminophen (hydrocodone bitartrate/acetaminophen) Override Rationale: Patient no longer on medication. (WedSep 02, 2016 00:54 AGRE) NOTES: No Refills. (WedSep 02, 2016 00:54 AGRE) IMAGING (WedSep 02, 2016 03:28 MSMI) *DISCHARGE INSTRUCTIONS RECEIPT: Image captured from scanner. Page 2 added. Image captured from scanner. *SUPPLY CHARGE SHEET: Image captured from scanner. Rodriguez: AGRE=MD Leland, Garret HAMMER=MANAV Abbasi, Quoc MSMI=MANAV Pritchard, Mariann &a-1R&a+25V*p+0X*w8895H*c202B*c15G*c2P*p-0X&a-25V&a+1R Name: Joyce Villanueva : 1995 F20 MedRec: [id number] AcctNum: [id number] Prepared: WedSep 02, 2016 03:54 by Interface Page 16 of 16 pMD MTDD
== END 2016-09-02 03:24 | disposition home or self-care (01) ==
LOC: NAV ERS 20:43
DX: L03.311 Cellulitis of abdominal wall (principal); E11.65 Type 2 diabetes mellitus with hyperglycemia; K21.9 Gastro-esophageal reflux disease without esophagitis; Z79.84 Long term (current) use of oral hypoglycemic drugs; Z79.4 Long term (current) use of insulin
CPT/HCPCS: 10160; 36416; 80048; 81003; 81015; 81025; 82010; 85025; J0696; J1815; J2001; J7050

== ENCOUNTER 2016-10-17 14:21 | Emergency (ER) | payer SELFPAY ==
[2016-10-17] MEDS ORDERED: Ondansetron ODT 4 MG TAB ONE (14:42)
[2016-10-17] MEDS ORDERED: Ibuprofen 200 MG TAB ONE (14:43)
[2016-10-17 14:58] LABS: Bilirubin Negative (Negative); Blood, Urine Negative (Negative); Clarity Clear (Clear); Glucose, Urine (Dipstick) 500 mg/dL (Negative); Leukocyte Negative (Negative); Nitrite Negative (Negative); Protein, Urine (Dipstick) 100 mg/dL (Neg-Trace); Urobilinogen 0.2 mg/dL (0.2-1.0); pH, Urine 6.5 (5.0-9.0)
[2016-10-17 15:05] LABS: Bacteria/HPF 1+ HPF (None Seen); RBC/HPF None Seen HPF (0-3); Squamous Epithelial 21-50 HPF (0-3)
[2016-10-17 15:06] LABS: Pregu Control Bar Appear? YES (CONTROL BAR)
[2016-10-17 15:14] LABS: ALT (SGPT) 7 U/L (0-55); AST (SGOT) 9 U/L (5-34); Albumin 4.2 g/dL (3.5-5.0); Alkaline Phosphatase 75 U/L (40-150); Anion Gap 15 mmol/L (10-20); BUN (Urea Nitrogen) 9 mg/dL (7.0-18.7); Bilirubin, Total 0.6 mg/dL (0.2-1.2); Calc. Creatinine Clearance 0 mL/min (70-130); Calcium 9.6 mg/dL (7.8-10.44); Carbon Dioxide 24 mmol/L (22-29); Chloride 101 mmol/L (98-107); Estimated GFR-MDRD Greater than 90; Globulin 3.9 g/dL (2.4-3.5); Glucose 391 mg/dL (70-105); Lipase 58 U/L (8-78); Potassium 3.8 mmol/L (3.5-5.1); Protein, Total 8.1 g/dL (6.0-8.3); Sodium 136 mmol/L (136-145)
[2016-10-17 15:27] LABS: #Basophils 0.1 thou/uL (0.0-0.2); #Eosinphils 0.1 thou/uL (0.0-0.7); #Lymphocytes 2.7 thou/uL (1.20-3.40); #Monocytes 0.5 thou/uL (0.11-0.59); #Neutrophils 5.3 thou/uL (1.40-6.50); %Basophils 1.3 % (0.0-1.0); %Eosinophils 1.4 % (0.0-10.0); %Monocytes 5.5 % (0.0-10.0); %Neutrophils 60.8 % (42.0-75.0); Hemoglobin 13.9 g/dL (12.0-16.0); Large Platelets SLIGHT; MDiff Complete? YES; Mean Corpuscular Hemoglobin 24.5 pg (27.0-31.0); Mean Corpuscular Volume 74.2 fl (81.0-99.0); Mean Platelet Volume 11.6 fL (7.4-10.4); PLT Morphology Comment Appears Adequate; Platelet Count 306 thou/uL (130-400); RBC Distribution Width 14.8 % (11.5-14.5); RBC Morphology Normal; Red Blood Cell (RBC) Count 5.67 mill/uL (4.20-5.40); White Blood Cell (WBC) Count 8.7 thou/uL (4.8-10.8)
[2016-10-17] MEDS ORDERED: Insulin Regular 300 UNITS/3 ML VIAL ONE (15:27)
== END 2016-10-17 15:46 | disposition home or self-care (01) ==
LOC: NAV ERS 14:21
DX: K59.00 Constipation, unspecified (principal); E10.65 Type 1 diabetes mellitus with hyperglycemia; K21.9 Gastro-esophageal reflux disease without esophagitis; F41.9 Anxiety disorder, unspecified; Z79.4 Long term (current) use of insulin; Z79.84 Long term (current) use of oral hypoglycemic drugs
CPT/HCPCS: 80053; 81003; 81015; 81025; 83690; 85025; 99284; J1815; Q0162

== ENCOUNTER 2017-01-10 21:07 | Emergency (ER) | payer SELFPAY | END 2017-01-10 22:23 | disposition home or self-care (01) | LOC: NAV ERS 21:07 | DX: Z48.01 Encounter for change or removal of surgical wound dressing (principal); K21.9 Gastro-esophageal reflux disease without esophagitis; E11.9 Type 2 diabetes mellitus without complications; F41.9 Anxiety disorder, unspecified; Z79.899 Other long term (current) drug therapy; Z79.84 Long term (current) use of oral hypoglycemic drugs | CPT/HCPCS: 99282 ==

== ENCOUNTER 2017-01-12 14:31 | Emergency (ER) | payer SELFPAY | END 2017-01-12 14:50 | disposition home or self-care (01) | LOC: NAV ERS 14:31 | DX: Z48.01 Encounter for change or removal of surgical wound dressing (principal); E11.9 Type 2 diabetes mellitus without complications; K21.9 Gastro-esophageal reflux disease without esophagitis; F41.9 Anxiety disorder, unspecified; Z79.4 Long term (current) use of insulin; Z79.899 Other long term (current) drug therapy | CPT/HCPCS: 99282 ==

== ENCOUNTER → 2017-01-28 | Emergency (ER) | payer SELFPAY ==
[~2017-01-28] MED LIST: Ketorolac Tromethamine 30 MG/ML VIAL ONE; Lorazepam 2 MG/ML VIAL ONE; Sodium Chloride 0.9% 1,000 ML ONE
[2017-01-28 12:21] LABS: CKMB 0.4 ng/mL (0-6.6); Troponin I 0.013 ng/mL (< 0.028)
[2017-01-28 12:22] LABS: ALT (SGPT) 33 U/L (8-55); AST (SGOT) 79 U/L (5-34); Albumin 3.9 g/dL (3.5-5.0); Alkaline Phosphatase 83 U/L (40-150); Anion Gap 16 mmol/L (10-20); BUN (Urea Nitrogen) 9 mg/dL (7.0-18.7); Bilirubin, Total 0.9 mg/dL (0.2-1.2); CK (CPK) 55 U/L (29-168); Calc. Creatinine Clearance 0 mL/min (70-130); Calcium 9.2 mg/dL (7.8-10.44); Carbon Dioxide 22 mmol/L (22-29); Chloride 103 mmol/L (98-107); Estimated GFR-MDRD Greater than 90; Globulin 3.4 g/dL (2.4-3.5); Glucose 200 mg/dL (70-105); Potassium 4.1 mmol/L (3.5-5.1); Protein, Total 7.3 g/dL (6.0-8.3); Sodium 137 mmol/L (136-145)
[2017-01-28 12:28] LABS: BHCG - Serum Negative (NEGATIVE); Pregs Control Bar Appear? YES (CONTROL BAR)
[2017-01-28 12:33] LABS: Hemoglobin 11.9 g/dL (12.0-16.0); Mean Corpuscular HGB CONC 31.4 g/dL (32.0-36.0); Mean Corpuscular Hemoglobin 22.6 pg (27.0-31.0); Mean Corpuscular Volume 72.1 fl (81.0-99.0); Mean Platelet Volume 8.7 fL (7.4-10.4); Platelet Count 295 thou/uL (130-400); Red Blood Cell (RBC) Count 5.24 mill/uL (4.20-5.40); White Blood Cell (WBC) Count 9.7 thou/uL (4.8-10.8)
[2017-01-28 12:34] LABS: Anisocytosis SLIGHT = 6-15 cells (100X) (0-5/hpf); Eosinophils 3 % (0-10); Lymphocytes 27 % (21-51); MDiff Complete? YES; Microcytosis SLIGHT = 6-15 cells (100X) (0-5/hpf); Monocytes 7 % (0-10); Neutrophil 63 % (42-75); PLT Morphology Comment Appears Adequate; Tear Drops MODERATE= 6-15 cells (100X) (0-1/hpf)
== END ==
LOC: NAV ERS 10:51
DX: R07.9 Chest pain, unspecified (principal); E11.65 Type 2 diabetes mellitus with hyperglycemia; K21.9 Gastro-esophageal reflux disease without esophagitis; F41.9 Anxiety disorder, unspecified; I10 Essential (primary) hypertension; Z79.899 Other long term (current) drug therapy; Z79.4 Long term (current) use of insulin
CPT/HCPCS: 80053; 82550; 82553; 84484; 84703; 85025; 93005; 96361; 96374; 96375; 96376; J1885; J2060; J7050

== ENCOUNTER 2017-03-13 14:44 | Emergency (ER) | payer SELFPAY ==
[2017-03-13 15:04] LABS: Pregnancy Test - Urine (BHCG) Negative (NEGATIVE); Pregu Control Background? CLEAR/WHITE (CLR/WHITE); Pregu Control Bar Appear? YES (CONTROL BAR); Specific Gravity 1.038 (1.002-1.036)
== END 2017-03-13 15:14 | disposition home or self-care (01) ==
LOC: NAV ERS 14:44
DX: N92.6 Irregular menstruation, unspecified (principal); E11.9 Type 2 diabetes mellitus without complications; I10 Essential (primary) hypertension; K21.9 Gastro-esophageal reflux disease without esophagitis; F41.9 Anxiety disorder, unspecified; Z79.4 Long term (current) use of insulin; Z79.899 Other long term (current) drug therapy
CPT/HCPCS: 81025; 99283

== ENCOUNTER 2017-05-02 20:25 | Emergency (ER) | payer SELFPAY ==
[~2017-05-02 20:25] MED LIST changes: +Iopamidol 370 76% 100 ML VIAL ONE; -Ketorolac Tromethamine 30 MG/ML VIAL ONE; -Lorazepam 2 MG/ML VIAL ONE; -Sodium Chloride 0.9% 1,000 ML ONE
[2017-05-02] MEDS ORDERED: Ondansetron HCl/PF 4 MG/2 ML Vial ONE (21:00)
[2017-05-02] MEDS ORDERED: Sodium Chloride 0.9% 1,000 ML ONE ×2 (21:00→22:19)
[2017-05-02] MEDS ORDERED: Pantoprazole 40 MG VIAL ONE (21:00)
[2017-05-02] MEDS ORDERED: Ketorolac Tromethamine 30 MG/ML VIAL ONE (21:04)
[2017-05-02 21:20] LABS: pH (venous) 7.36 (7.35-7.45)
[2017-05-02 21:21] LABS: Hemoglobin (Hb) 14.4 g/dL (11.7-15.5)
[2017-05-02 21:26] LABS: BHCG - Serum Negative (NEGATIVE); Pregs Control Bar Appear? YES (CONTROL BAR)
[2017-05-02 21:36] LABS: Band 37 % (5-11); Eosinophils 5 % (0-10); Hemoglobin 14.5 g/dL (12.0-16.0); Hypochromia SLIGHT = 6-15 cells (100X) (0-5/hpf); Lymphocytes 10 % (21-51); MDiff Complete? YES; Mean Corpuscular HGB CONC 30.8 g/dL (32.0-36.0); Mean Corpuscular Hemoglobin 22.4 pg (27.0-31.0); Mean Corpuscular Volume 72.9 fl (81.0-99.0); Mean Platelet Volume 8.5 fL (7.4-10.4); Microcytosis MARKED = >30 cells (100X) (0-5/hpf); Monocytes 1 % (0-10); Neutrophil 47 % (42-75); PLT Morphology Comment Appears Adequate; Platelet Count 285 thou/uL (130-400); RBC Distribution Width 15.2 % (11.5-14.5); Red Blood Cell (RBC) Count 6.47 mill/uL (4.20-5.40); White Blood Cell (WBC) Count 18.2 thou/uL (4.8-10.8)
[2017-05-02 21:38] LABS: ALT (SGPT) 15 U/L (8-55); AST (SGOT) 16 U/L (5-34); Albumin 4.6 g/dL (3.5-5.0); Alkaline Phosphatase 109 U/L (40-150); Anion Gap 22 mmol/L (10-20); BUN (Urea Nitrogen) 12 mg/dL (7.0-18.7); Bilirubin, Total 0.9 mg/dL (0.2-1.2); Calc. Creatinine Clearance 0 mL/min (70-130); Calcium 10.3 mg/dL (7.8-10.44); Carbon Dioxide 18 mmol/L (22-29); Chloride 104 mmol/L (98-107); Estimated GFR-MDRD Greater than 90; Globulin 4.2 g/dL (2.4-3.5); Glucose 395 mg/dL (70-105); Lipase 29 U/L (8-78); Potassium 3.8 mmol/L (3.5-5.1); Protein, Total 8.8 g/dL (6.0-8.3); Sodium 140 mmol/L (136-145)
[2017-05-02 22:09] LABS: Bilirubin Small (Negative); Blood, Urine Large (Negative); Clarity Clear (Clear); Glucose, Urine (Dipstick) 500 mg/dL (Negative); Leukocyte Negative (Negative); Nitrite Negative (Negative); Protein, Urine (Dipstick) 100 mg/dL (Neg-Trace); Urobilinogen 0.2 mg/dL (0.2-1.0); pH, Urine 5.5 (5.0-9.0)
[2017-05-02 22:11] LABS: Specific Gravity, Urine 1.048 (1.002-1.036)
--- NOTE | 2017-05-02 22:12 | RAD ---
CHEST ONE VIEW ABDOMEN TWO VIEWS: History: Nausea, vomiting, diarrhea. Abdominal pain. FINDINGS/IMPRESSION: The heart size is normal. The lungs are clear. No free air or differential fluid levels are seen. Th ere are post op changes of cholecystectomy. No suspicious calcifications are identified. POS: [facility]
[2017-05-02 22:13] LABS: Bacteria/HPF Rare-Few HPF (None Seen); RBC/HPF 0-3 HPF (0-3); WBC/HPF 0-3 HPF (0-3)
[2017-05-02] MEDS ORDERED: Insulin Regular 300 UNITS/3 ML VIAL ONE (22:19)
--- NOTE | 2017-05-02 23:44 | CT ---
CT ABDOMEN AND PELVIS WITH IV CONTRAST: History: Abdominal pain. FINDINGS: The lung bases are clear. The patient is post cholecystectomy. The liver, spleen, pancreas, adrenal glands, and kidneys are normal. A normal appearing appendix is present. No free air, free fluid or l ymphadenopathy is identified in the abdomen or pelvis. There are fluid filled loops of small bowel. Fluid is also seen in the distal colon and rectum. The uterus is present. No acute osseous abnormali ty is identified. IMPRESSION: Findings likely due to enteritis/colitis. POS: [facility]
[2017-05-03] MEDS ORDERED: Ondansetron HCl/PF 4 MG/2 ML Vial ONE (00:06)
== END 2017-05-03 00:19 | disposition short-term general hospital (02) ==
LOC: NAV ERS 20:25
DX: K52.9 Noninfective gastroenteritis and colitis, unspecified (principal); E10.65 Type 1 diabetes mellitus with hyperglycemia; E86.0 Dehydration; F41.9 Anxiety disorder, unspecified; Z79.899 Other long term (current) drug therapy
CPT/HCPCS: 36416; 74022; 74177; 80053; 81003; 81015; 82010; 82805; 83690; 84703; 85025; 96361; 96374; 96375; 96376; C9113; J1815; J1885; J2405; J7050

== ENCOUNTER 2017-06-03 19:11 | Emergency (ER) | payer SELFPAY ==
[2017-06-03 20:11] LABS: Pregnancy Test - Urine (BHCG) Negative (Negative); Pregu Control Background? CLEAR/WHITE (CLR/WHITE); Pregu Control Bar Appear? YES (CONTROL BAR); Specific Gravity 1.044 (1.002-1.036)
== END 2017-06-03 20:23 | disposition home or self-care (01) ==
LOC: NAV ERS 19:11
DX: M79.1 Myalgia (principal); E11.9 Type 2 diabetes mellitus without complications; F41.9 Anxiety disorder, unspecified; Z79.4 Long term (current) use of insulin; Z79.899 Other long term (current) drug therapy
CPT/HCPCS: 81025; 99283

== ENCOUNTER 2017-06-11 04:48 | Emergency (ER) | payer SELFPAY ==
[2017-06-11] MEDS ORDERED: Acetaminophen 500 MG TAB ONE (05:03)
[2017-06-11] MEDS ORDERED: Sulfameth/Trimethoprim DS 800-160mg TAB ONE (05:04)
== END 2017-06-11 05:12 | disposition home or self-care (01) ==
LOC: NAV ERS 04:48
DX: L02.416 Cutaneous abscess of left lower limb (principal); E11.9 Type 2 diabetes mellitus without complications; F41.9 Anxiety disorder, unspecified
CPT/HCPCS: 99283

== ENCOUNTER 2018-02-08 11:14 | Emergency (ER) | payer SELFPAY ==
[2018-02-08] MEDS ORDERED: Ondansetron ODT 4 MG TAB ONE (11:38)
[2018-02-08] MEDS ORDERED: Acetaminophen 500 MG TAB ONE (11:38)
== END 2018-02-08 12:05 | disposition home or self-care (01) ==
LOC: NAV ERS 11:14
DX: K52.9 Noninfective gastroenteritis and colitis, unspecified (principal); F41.9 Anxiety disorder, unspecified; E11.9 Type 2 diabetes mellitus without complications; Z79.4 Long term (current) use of insulin; Z79.899 Other long term (current) drug therapy
CPT/HCPCS: 99283; Q0162

== ENCOUNTER 2018-04-18 11:06 | Emergency (ER) | payer SELFPAY ==
[2018-04-18] MEDS ORDERED: Ondansetron HCl/PF 4 MG/2 ML Vial ONE (11:55)
[2018-04-18] MEDS ORDERED: Sodium Chloride 0.9% 1,000 ML ONE ×2 (11:56→13:50)
[2018-04-18 12:03] LABS: Hemoglobin 13.9 g/dL (12.0-16.0); Mean Corpuscular HGB CONC 30.5 g/dL (32.0-36.0); Mean Corpuscular Hemoglobin 22.9 pg (27.0-31.0); Mean Corpuscular Volume 75.1 fL (78.0-98.0); Mean Platelet Volume 10.3 fL (7.4-10.4); Platelet Count 276 thou/uL (130-400); RBC Distribution Width 15.3 % (11.5-14.5); Red Blood Cell (RBC) Count 6.06 mill/uL (4.20-5.40); White Blood Cell (WBC) Count 7.4 thou/uL (4.8-10.8)
[2018-04-18 12:05] LABS: ALT (SGPT) 14 U/L (8-55); AST (SGOT) 12 U/L (5-34); Albumin 4.5 g/dL (3.5-5.0); Alkaline Phosphatase 91 U/L (40-150); Anion Gap 19 mmol/L (10-20); BUN (Urea Nitrogen) 7 mg/dL (7.0-18.7); Bilirubin, Total 0.7 mg/dL (0.2-1.2); Calc. Creatinine Clearance 0 mL/min (70-130); Calcium 10.7 mg/dL (7.8-10.44); Carbon Dioxide 23 mmol/L (22-29); Chloride 95 mmol/L (98-107); Estimated GFR-MDRD 72; Globulin 4.5 g/dL (2.4-3.5); Lipase 40 U/L (8-78); Potassium 3.7 mmol/L (3.5-5.1); Sodium 133 mmol/L (136-145)
[2018-04-18 12:06] LABS: Bilirubin Negative (Negative); Blood, Urine Negative (Negative); Clarity Clear (Clear); Glucose, Urine (Dipstick) >=1000 mg/dL (Negative); Leukocyte Negative (Negative); Nitrite Negative (Negative); Protein, Urine (Dipstick) Negative (Neg-Trace); Urobilinogen 0.2 mg/dL (0.2-1.0)
[2018-04-18 12:09] LABS: Specific Gravity, Urine 1.038 (1.002-1.036)
[2018-04-18 12:10] LABS: Pregnancy Test - Urine (BHCG) Negative (Negative); Pregu Control Background? CLEAR/WHITE (CLR/WHITE); Pregu Control Bar Appear? YES (CONTROL BAR); Specific Gravity 1.038 (1.002-1.036)
[2018-04-18 12:11] LABS: Glucose 635 mg/dL (70-105)
[2018-04-18 12:25] LABS: Eosinophils 1 % (0-10); Hypochromia SLIGHT = 6-15 cells (100X) (0-5/hpf); Lymphocytes 26 % (21-51); MDiff Complete? YES; Monocytes 6 % (0-10); Neutrophil 64 % (42-75); PLT Morphology Comment Appears Adequate; Reactive Lymphocytes 2 % (0-10)
[2018-04-18 13:13] LABS: CO2 Tension (PvCO2) 38.6 mmHg (41.0-51.0); O2 Tension (PvO2) 36.1 mmHg (35.0-45.0); pH (Venous) 7.356 (7.35-7.45)
[2018-04-18 13:14] LABS: Base Excess-Venous -3.5 mmol/L (0 (+/- 2.5)); Bicarbonate (HCO3v) 21.6 mmol/L (1.0-85.0); Calcium, Ionized 1.09 mmol/L (1.12-1.32); Hemoglobin - Calc 13.3 g/dL (12.0-18.0); vO2 Saturation-calc 66.9 % (94-98)
[2018-04-18 13:15] LABS: Potassium 3.6 mmol/L (3.4-4.7); T. Carbon Dioxide 22.8 mmol/L (1.0-85.0)
[2018-04-18 15:46] LABS: Lactic Acid 1.8 mmol/L (0.5-2.2)
[2018-04-18 15:48] LABS: Anion Gap 12 mmol/L (10-20)
[2018-04-18 15:54] LABS: BUN (Urea Nitrogen) 6 mg/dL (7.0-18.7); Calc. Creatinine Clearance 0 mL/min (70-130); Calcium 8.6 mg/dL (7.8-10.44); Carbon Dioxide 24 mmol/L (22-29); Chloride 107 mmol/L (98-107); Estimated GFR-MDRD Greater than 90; Glucose 312 mg/dL (70-105); Potassium 3.6 mmol/L (3.5-5.1); Sodium 139 mmol/L (136-145)
== END 2018-04-18 16:32 | disposition home or self-care (01) ==
LOC: NAV ERS 11:06
DX: E11.65 Type 2 diabetes mellitus with hyperglycemia (principal); E86.0 Dehydration; E78.5 Hyperlipidemia, unspecified; F41.9 Anxiety disorder, unspecified; Z79.4 Long term (current) use of insulin; Z79.899 Other long term (current) drug therapy
CPT/HCPCS: 36415; 36416; 80053; 81003; 81025; 82010; 82330; 82803; 83605; 83690; 83735; 85025; 93005; 96361; 96374; J2405; J7050

== ENCOUNTER 2018-07-14 12:29 | Emergency (ER) | payer BC, SELFPAY ==
[2018-07-14] MEDS ORDERED: Ketorolac Tromethamine 60 MG/2 ML VIAL ONE (13:01)
== END 2018-07-14 13:06 | disposition home or self-care (01) ==
LOC: NAV ERS 12:29
DX: S63.501A Unspecified sprain of right wrist, initial encounter (principal); E11.9 Type 2 diabetes mellitus without complications; Z79.4 Long term (current) use of insulin; X50.0XXA Overexertion from strenuous movement or load, initial encounter
CPT/HCPCS: 99283; J1885

== ENCOUNTER 2018-08-25 12:54 | Emergency (ER) | payer BC | END 2018-08-25 13:41 | disposition home or self-care (01) | LOC: NAV ERS 12:54 | DX: J02.9 Acute pharyngitis, unspecified (principal); E78.5 Hyperlipidemia, unspecified; E11.9 Type 2 diabetes mellitus without complications; F41.9 Anxiety disorder, unspecified; F32.9 Major depressive disorder, single episode, unspecified; Z87.891 Personal history of nicotine dependence; Z79.4 Long term (current) use of insulin; Z79.899 Other long term (current) drug therapy | CPT/HCPCS: 87081; 87430; 99283 ==

== ENCOUNTER 2019-03-16 20:00 | Emergency (ER) | payer BC ==
[2019-03-16 20:30] LABS: Bilirubin Negative (Negative); Blood, Urine Negative (Negative); Clarity Clear (Clear); Glucose, Urine (Dipstick) 500 mg/dL (Negative); Leukocyte Negative (Negative); Nitrite Negative (Negative); Protein, Urine (Dipstick) Negative (Neg-Trace); Urobilinogen 0.2 mg/dL (Less than 2)
[2019-03-16 20:33] LABS: Pregnancy Test - Urine (BHCG) Negative (Negative); Specific Gravity 1.015 (1.002-1.036)
[2019-03-16 20:34] LABS: Pregu Control Background? CLEAR/WHITE (CLR/WHITE); Pregu Control Bar Appear? YES (CONTROL BAR)
[2019-03-16 21:10] LABS: #Basophils 0.1 thou/uL (0.0-0.2); #Eosinphils 0.2 thou/uL (0.0-0.7); #Lymphocytes 3.2 thou/uL (1.20-3.40); #Monocytes 0.5 thou/uL (0.11-0.59); #Neutrophils 5.3 thou/uL (1.40-6.50); %Basophils 1.1 % (0.0-1.0); %Eosinophils 1.7 % (0.0-10.0); %Lymphocytes 34.6 % (21.0-51.0); %Monocytes 5.6 % (0.0-10.0); Hemoglobin 13.1 g/dL (12.0-16.0); MDiff Complete? YES; Mean Corpuscular HGB CONC 31.4 g/dL (32.0-36.0); Mean Corpuscular Hemoglobin 23.5 pg (27.0-31.0); Mean Corpuscular Volume 74.9 fL (78.0-98.0); Mean Platelet Volume 9.9 fL (7.4-10.4); Microcytosis SLIGHT = 6-15 cells (100X) (0-5/hpf); Platelet Count 271 thou/uL (130-400); Platelet Morphology Comment Appears Adequate; RBC Distribution Width 14.6 % (11.5-14.5); Red Blood Cell (RBC) Count 5.56 mill/uL (4.20-5.40); White Blood Cell (WBC) Count 9.2 thou/uL (4.8-10.8)
[2019-03-16 21:16] LABS: ALT (SGPT) 11 U/L (8-55); AST (SGOT) 12 U/L (5-34); Alkaline Phosphatase 99 U/L (40-150); Anion Gap 17 mmol/L (10-20); BUN (Urea Nitrogen) 12 mg/dL (7.0-18.7); Bilirubin, Total 0.3 mg/dL (0.2-1.2); CK (CPK) 52 U/L (29-168); CRP (Inflammatory) 2.24 mg/dL (= or < 0.5); Calc. Creatinine Clearance 0 mL/min (70-130); Calcium 9.5 mg/dL (7.8-10.44); Carbon Dioxide 24 mmol/L (22-29); Chloride 101 mmol/L (98-107); Estimated GFR-MDRD Greater than 90; Globulin 3.4 g/dL (2.4-3.5); Glucose 336 mg/dL (70-105); Lipase 57 U/L (8-78); Protein, Total 7.4 g/dL (6.0-8.3); Sodium 138 mmol/L (136-145)
[2019-03-16] MEDS ORDERED: Sodium Chloride 0.9% 1,000 ML ONE (21:53)
[2019-03-16] MEDS ORDERED: Pantoprazole 40 MG VIAL ONE (22:20)
[2019-03-16] MEDS ORDERED: Ketorolac Tromethamine 30 MG/ML VIAL ONE (22:20)
--- NOTE | 2019-03-16 23:59 | CT ---
CT OF THE ABDOMEN AND PELVIS WITH IV CONTRAST INDICATION: Abdominal Pain COMPARISON: May 02, 2017 FINDINGS: ABDOMEN: Lung bases: Clear Liver: No focal lesion. Gallbladder: Surgically absent Pancreas: Normal. Adrenal glands: Normal. Spleen: Normal. Kidneys: Normal. Retroperitoneum of the upper abdomen: No lymphadenopathy or free fluid is identified. Pelvis: Small and large bowel: Normal appendix. Unopacified large and small bowel are of normal caliber. Bladder: Normal. Rectal and perirectal soft tissues:Normal. Reproductive structures: Normal. Free fluid in pelvis: No free fluid is evident. Lymphadenopathy pelvis: No lymphadenopathy is evident. Osseous structures: No acute osseous abnormality. No destructive osteolytic or osteoblastic lesion i s identified. There is scattered degenerative and osteoarthritic changes. There is stranding involving the subcutaneous tissues of the lower anterior abdominal wall which may reflect panniculiti s. IMPRESSION: 1. Possible panniculitis of the lower anterior abdominal wall.
[2019-03-17] MEDS ORDERED: Cephalexin 250 MG CAP ONE (00:18)
== END 2019-03-17 00:35 | disposition home or self-care (01) ==
LOC: NAV ERS 20:00
DX: K29.00 Acute gastritis without bleeding (principal); M79.3 Panniculitis, unspecified; E11.65 Type 2 diabetes mellitus with hyperglycemia; Z79.4 Long term (current) use of insulin; E78.5 Hyperlipidemia, unspecified; E78.00 Pure hypercholesterolemia, unspecified; F41.9 Anxiety disorder, unspecified; Z87.891 Personal history of nicotine dependence; Z79.899 Other long term (current) drug therapy
CPT/HCPCS: 74177; 80053; 81003; 81025; 82550; 83690; 84484; 85025; 86140; 93005; 96361; 96374; 96375; C9113; J1885; J7050; Q9967

== ENCOUNTER 2020-07-14 19:24 | Emergency (ER) | payer BC | END 2020-07-14 19:48 | disposition home or self-care (01) | LOC: NAV ERS 19:24 | DX: J30.9 Allergic rhinitis, unspecified (principal); E11.9 Type 2 diabetes mellitus without complications; Z79.4 Long term (current) use of insulin; E78.5 Hyperlipidemia, unspecified; E78.00 Pure hypercholesterolemia, unspecified; Z87.891 Personal history of nicotine dependence | CPT/HCPCS: 99283 ==

== ENCOUNTER 2021-04-09 06:13 | Emergency (ER) | payer BC ==
[2021-04-09] MEDS ORDERED: Ketorolac Tromethamine 60 MG/2 ML VIAL ONE (06:49)
== END 2021-04-09 07:00 | disposition home or self-care (01) ==
LOC: NAV ERS 06:13
DX: M62.838 Other muscle spasm (principal); E11.9 Type 2 diabetes mellitus without complications; E78.5 Hyperlipidemia, unspecified; Z87.891 Personal history of nicotine dependence; Z79.899 Other long term (current) drug therapy
CPT/HCPCS: 96372; 99283; J1885

== ENCOUNTER 2022-09-02 18:49 | Emergency (ER) | payer BC | END 2022-09-02 20:19 | disposition home or self-care (01) | LOC: NAV ERS 18:49 | DX: S63.501A Unspecified sprain of right wrist, initial encounter (principal); I10 Essential (primary) hypertension; E78.00 Pure hypercholesterolemia, unspecified; E11.9 Type 2 diabetes mellitus without complications; Z79.4 Long term (current) use of insulin; X58.XXXA Exposure to other specified factors, initial encounter ==

== ENCOUNTER 2023-05-26 05:01 | Emergency (ER) | payer BC, SELFPAY ==
[2023-05-26 05:45] LABS: #Basophils 0.2 thou/uL (0.0-0.2); #Eosinphils 0.1 thou/uL (0.0-0.7); #Lymphocytes 2.4 thou/uL (1.20-3.40); #Monocytes 0.8 thou/uL (0.11-0.59); #Neutrophils 6.6 thou/uL (1.40-6.50); %Basophils 1.8 % (0.0-1.0); %Eosinophils 1.2 % (0.0-10.0); %Lymphocytes 24.3 % (21.0-51.0); %Monocytes 7.5 % (0.0-10.0); %Neutrophils 65.3 % (42.0-75.0); Hematocrit 42.4 % (36.0-47.0); Hemoglobin 13.8 g/dL (12.0-16.0); Mean Corpuscular HGB CONC 32.6 g/dL (32.0-36.0); Mean Corpuscular Hemoglobin 24.9 pg (27.0-31.0); Mean Corpuscular Volume 76.2 fl (78.0-98.0); Mean Platelet Volume 11.5 fL (7.4-10.4); Platelet Count 355 10x3/uL (130-400); Red Blood Cell (RBC) Count 5.56 mill/uL (4.20-5.40)
[2023-05-26] MEDS ORDERED: fentaNYL 50 mcg/mL 1 mL Vial ONE ×2 (05:46→07:08)
[2023-05-26 05:57] LABS: ALT (SGPT) 22 U/L (8-55); AST (SGOT) 37 U/L (5-34); Albumin 4.3 g/dL (3.5-5.0); Alkaline Phosphatase 83 U/L (40-110); Anion Gap 19 mmol/L (10-20); BUN (Urea Nitrogen) 8 mg/dL (7.0-18.7); Bilirubin, Total 0.3 mg/dL (0.2-1.2); Calc. Creatinine Clearance 0 mL/min (70-130); Carbon Dioxide 20 mmol/L (22-29); Chloride 105 mmol/L (98-107); Estimated GFR 116; Globulin 4.4 g/dL (2.4-3.5); Glucose 127 mg/dL (70-105); Lipase 55 U/L (8-78); Potassium 4.4 mmol/L (3.5-5.1); Protein, Total 8.7 g/dL (6.0-8.3); Sodium 140 mmol/L (136-145)
[2023-05-26] MEDS ORDERED: Ondansetron PF 4 MG/2 ML Vial ONE (05:57)
[2023-05-26 06:37] LABS: Bilirubin Small (Negative); Blood, Urine Negative (Negative); Clarity Clear (Clear); Glucose, Urine (Dipstick) Negative (Negative); Ketone, Urine 15 mg/dL (Negative); Leukocyte Negative (Negative); Nitrite Negative (Negative); Protein, Urine (Dipstick) > or equal to 300 mg/dL (Neg-Trace)
[2023-05-26 06:39] LABS: Specific Gravity, Urine 1.021 (1.005-1.030)
[2023-05-26 06:43] LABS: CAUTI Indications for Culture Pelvic or flank pain; RBC/HPF None Seen HPF (0-3); Squamous Epithelial 0-3 HPF (0-3)
[2023-05-26 06:44] LABS: Bacteria/HPF Rare-Few HPF (None Seen)
[2023-05-26 06:45] LABS: Urine Culture Reflex No No
[2023-05-26 06:46] LABS: Amphetamine Not Detected (NotDetected); Barbiturates Screen Not Detected (NotDetected); Benzodiazepine Screen Not Detected (NotDetected); Cocaine Metabolite Screen Not Detected (NotDetected); Methadone Not Detected (NotDetected); Methamphetamine Not Detected (NotDetected); Opiate Screen Not Detected (NotDetected); Oxycodone Screen Not Detected (NotDetected); Phencyclidine (PCP) Not Detected (NotDetected); THC/Cannabinoid Screen Detected (NotDetected); Tricyclic Screen Not Detected (NotDetected)
[2023-05-26 06:47] LABS: Pregnancy Test - Urine (BHCG) Negative (Negative); Pregu Control Background? CLEAR/WHITE (CLR/WHITE); Pregu Control Bar Appear? YES (CONTROL BAR); Specific Gravity 1.021 (1.002-1.036)
[2023-05-26] MEDS ORDERED: Promethazine HCl 25 MG/ML VIAL ONE (07:09)
[2023-05-26] MEDS ORDERED: Sodium Chloride 0.9% 1,000 ML ONE (08:22)
[2023-05-26] MEDS ORDERED: Lidocaine 2% Jelly 5 ML TUBE ONE (08:23)
[2023-05-26] MEDS ORDERED: Benzocaine 20% Spray 60 ML CAN ONE (08:23)
[2023-05-26] MEDS ORDERED: Iopamidol 370 76% 100 ML VIAL ONE (09:00)
== END 2023-05-26 09:23 | disposition short-term general hospital (02) ==
LOC: NAV ERS 05:01
DX: K56.609 Unspecified intestinal obstruction, unspecified as to partial versus complete obstruction (principal); E11.9 Type 2 diabetes mellitus without complications; E66.9 Obesity, unspecified; Z79.4 Long term (current) use of insulin; Z79.899 Other long term (current) drug therapy
CPT/HCPCS: 74018; 74177; 80053; 80306; 81001; 81025; 82010; 83605; 83690; 85025; 96361; 96374; 96375; 96376; J2405; J2550; J3010; J7050; Q9967